=== PATIENT | female | born 1955 | race Caucasian/White ===

== ENCOUNTER 2021-09-30 08:00 | Day surgery (SDC) | payer MEDICARE ==
[2021-09-23 10:39] VITALS: BMI 23.1
[~2021-09-30 08:00] MED LIST: DEXAMETHASONE SOD PHOSPHATE 4 MG/ML 1 ML VIAL IV ONE; HYDROmorphone 0.5 MG/0.5 ML SYRINGE IVP PRN; ONDANSETRON 4 MG/2 ML VIAL IVP ONE; ceFAZolin 1,000 MG in SODIUM CHLORIDE 0.9% IRRIGATIO 1,000 ML IRRIGATION PRN
[2021-09-30] MEDS ORDERED: LIDOCAINE 1% (10MG/ML) FOR IV START INTRADERMA ONE (08:34)
[2021-09-30] MEDS: LACTATED RINGERS 1,000 ML IV SCH ×3 (08:35→15:15)
[2021-09-30] MEDS ORDERED: ONDANSETRON 4 MG/2 ML VIAL ONE (08:42)
[2021-09-30] MEDS ORDERED: MIDAZOLAM 2 MG/2 ML VIAL IVP ONE (08:45)
[2021-09-30] MEDS ORDERED: NEOSTIGMINE 1 MG/ML 10 ML VIAL ONE (10:11)
[2021-09-30] MEDS ORDERED: ROCURONIUM 10 MG/ML (5 ML VIAL) IV ONE (10:11)
[2021-09-30] MEDS ORDERED: fentaNYL (PF) 50 MCG/ML 2 ML AMP ONE (10:11)
[2021-09-30] MEDS ORDERED: SUCCINYLCHOLINE CHLORIDE 100 MG/5 ML SYR IV ONE (10:11)
[2021-09-30] MEDS ORDERED: PHENYLEPHRINE-0.9% NACL SYG 1,000 MCG/10 ML SYRINGE ONE (10:11)
[2021-09-30] MEDS ORDERED: GLYCOPYRROLATE 0.2 MG/ML 2 ML VIAL ONE (10:11)
[2021-09-30] MEDS ORDERED: PROPOFOL 10 MG/ML 20 ML VIAL IV ONE (10:11)
[2021-09-30] MEDS ORDERED: LIDOCAINE 1% INJ 10MG/ML (20 ML MDV) ONE (10:11)
[2021-09-30] MEDS ORDERED: MIDAZOLAM 2 MG/2 ML VIAL ONE (10:11)
[2021-09-30] MEDS ORDERED: GELATIN SPONGE,ABSORB (SMALL) 1 EACH SPONGE TOPICAL ONE (10:48)
[2021-09-30] MEDS ORDERED: THROMBIN (BOVINE) 5,000 UNIT VIAL TOPICAL ONE (10:48)
[2021-09-30] MEDS ORDERED: LIDOCAINE 2%-EPI 1:100,000 20 ML VIAL SQ ONE (10:48)
[2021-09-30] MEDS ORDERED: BUPIVACAINE (PF) 0.25% 30 ML VIAL SQ ONE (10:48)
[2021-09-30] MEDS ORDERED: LACTATED RINGERS 1,000 ML IV ONE (10:55)
[2021-09-30] MEDS ORDERED: HYDROcodone/APAP 5-325MG 1 EACH TAB PO PRN (12:39)
[2021-09-30] MEDS ORDERED: BENZOCAINE/MENTHOL LOZENG 1 EACH LOZENGE MUCOUS MEM PRN (12:39)
[2021-09-30] MEDS ORDERED: HYDROmorphone 0.5 MG/0.5 ML SYRINGE IVP PRN (12:39)
[2021-09-30] MEDS ORDERED: CYCLOBENZAPRINE 5 MG TAB PO PRN (12:40)
[2021-09-30] MEDS ORDERED: ONDANSETRON 4 MG/2 ML VIAL IVP PRN (12:40)
[2021-09-30] MEDS ORDERED: SENNOSIDES-DOCUSATE SODIUM 1 EACH TAB PO PRN (12:40)
[2021-09-30] MEDS ORDERED: ALPRAZolam 0.25 MG TAB PO PRN (12:42)
--- NOTE | 2021-09-30 12:48 | P.OP ---
Date of Procedure: 09/30/21 Preoperative Diagnosis: Herniated nucleus pulposis C5 6 C6 7 and C4 5, cervical spinal stenosis C4 5 C5 6 C6 7, severe degenerative disc disease C4 5 C5 6 C6 7, neck pain, upper extremity radiculopathy, upper extremity weakness Postoperative Diagnosis: Same Anesthesia: GETA Pathology: none sent Condition: stable Disposition: PACU Description of Procedure: BRIEF OPERATIVE NOTE Preoperative Diagnosis:Herniated nucleus pulposis C5 6 C6 7 and C4 5, cervical spinal stenosis C4 5 C5 6 C6 7, severe degenerative disc disease C4 5 C5 6 C6 7, neck pain, upper extremity radiculopathy, upper extremity weakness Postoperative Diagnosis:Herniated nucleus pulposis C5 6 C6 7 and C4 5, cervical spinal stenosis C4 5 C5 6 C6 7, severe degenerative disc disease C4 5 C5 6 C6 7, neck pain, upper extremity radiculopathy, upper extremity weakness Procedure: Anterior cervical decompression with discectomy and fusion C4 5 C5 6 and C6 7 Placement of interbody graft C4 5 C5 6 C6 7 Application of anterior cervical plate C4 5 6 and 7 Surgeon: Dr. Smith Delivery Man: Erik Camargo is present throughout the entire the case persistence during positioning, dissection, exposure, visualization, and all crucial elements of the case as well as closure. Anesthesia: General anesthesia Estimated blood loss: Approximately 200 mL Complications: None apparent Components implanted: K2M [place] anterior cervical plate system with screws and Vikos interbody allograft bone graft with 1 mL of DBX bone putty Disposition: To recovery room in good stable condition. OPERATIVE INDICATIONS The patient has had long-standing issues in their neck and upper extremities. She has been having worsening of her symptoms with the past several months has been having radiculopathy with some evidence of weakness. She does not have severe changes at her cervical spine with cervical stenosis and degenerative disc disease which correlate well with her neck and upper extremity symptoms. The patient has been through conservative treatment. She is not having any lasting effect despite aggressive conservative care. We discussed various treatment options including surgery, and the patient wishes to proceed with surgery We discussed the risk, patient's alternatives and benefits of surgery including but not limited to, risk of bleeding risk of infection, risk of need for further surgery, risk of decreased, loss of motion, muscle function, malunion nonunion, hardware failure, nerve damage, paralysis, heart attack, and . OPERATIVE SUMMARY After discussing all the risks, patient alternatives and benefits at length, the patient elected to proceed with surgical intervention, signed informed consent, and presented for their procedure. The patient was seen and examined in the preoperative holding area and the surgical site was marked. The patient was given antibiotics and brought to the operating room. The patient was positioned on the operating room table in a supine position being careful to pad any bony prominences and pressure points. The patient was sedated and intubated by anesthesia in standard fashion. Once the airway and C- spine were stabilized the patient's arms were padded and tucked at her side, with her shoulders gently taped. The head was placed in a donut pad with the neck in good neutral alignment and position. We were careful to maintain the patient's cervical spine and good neutral alignment and position throughout. The patient was prepped and draped in a normal standard fashion. An appropriate timeout and keystone protocol performed. We were able to proceed with the surgery. The local wound area was infiltrated with local anesthetic. An incision was made transversely approximately 2-1/2 cm over the appropriate levels at C5 6. Dissection was taken down subcutaneously to the level of the platysma which was split in line with its fibers. Dissection was taken with a carotid approach, with the trachea and esophagus medial and the carotid sheath laterally. We dissected down to the anterior surface of the vertebral bodies at C4 5 6 and 7. Intraoperative x-ray was taken which showed a marker at the appropriate level at C5 6. With the appropriate level positively confirmed, we were able to proceed with discectomy at the appropriate levels starting at C6 7 and then moving to C5 6 and then moving to C4 5. All of the operative levels were exposed appropriately. The patient had all their twitches back, and there was no evidence of recurrent laryngeal issue. The wound was copiously irrigated and suctioned dry as had been done periodically throughout the case. At the appropriate level/levels, I established an annulotomy with an 11 blade scalpel. A discectomy was performed with a combination of pituitary rongeurs, curettes, a high-speed bur, and Kerrison rongeurs. The posterior longitudinal ligament was taken down as were any posterior osteophytes. There was severe disc loss and posterior spurring particularly at C6 7 and C5 6. I was able to remedy this and take down the posterior longitudinal ligament at each level. This gave good central and bilateral foraminal decompression. There is no evidence of any dural tear or leak. The endplates were prepared with a high-speed bur. With the endplates in good parallel position, I was able to size for the appropriate size interbody graft. The wound was irrigated and suctioned dry the graft was prepared and malleted into position. It had good alignment and position with the anterior surface flush with the anterior surface of the vertebral bodies. This was done similarly the appropriate levels first at C6 7 and then at C5 6 and then at C4 5. With the grafts intact, I was able to measure and contour and appropriate sized plate. The plate was positioned at the midline over the appropriate levels at C4 5 6 and 7. Screw holes were established with a hand drill and drill guide. Screws were placed in good alignment and position with excellent bony purchase. They were seated under the locking device. The construct was checked and found to be stable. Intraoperative x-ray was taken which showed good alignment and position of the implants at the appropriate levels. There was no evidence of any dural tear or leak. Good hemostasis was maintained. The wound was copiously irrigated and suctioned dry as had been done periodically throughout the case. The platysma was closed with absorbable suture. The subcutaneous tissue was closed. The subcuticular tissue was closed with absorbable suture. The wound was cleaned and dried and dressed appropriately. A soft cervical collar was placed appropriately. The patient was woken up by anesthesia, extubated, transferred back gently to their hospital bed and brought to the recovery room in good stable condition. The patient will be admitted to the hospital for appropriate postoperative care, medical management and monitoring. We will continue to follow them closely about the postoperative course.
--- NOTE | 2021-09-30 14:47 | XR ---
EXAMINATION TYPE: XR cervical spine 1V DATE OF EXAM: 09/30/2021 COMPARISON: NONE HISTORY: 66-year-old female needle placement TECHNIQUE: Single intraoperative crosstable lateral view FINDINGS: The patient is intubated. Surgical needle within the C5-C6 anterior disc interspace. IMPRESSION: Surgical needle at the anterior C5-C6 disc interspace.
[2021-09-30] MEDS: SODIUM CHLORIDE 0.9% 1,000 ML IV SCH (15:49)
--- NOTE | 2021-09-30 15:56 | XR ---
EXAMINATION TYPE: XR cervical spine 1V DATE OF EXAM: 09/30/2021 COMPARISON: NONE HISTORY: 66-year-old female heart replacement TECHNIQUE: Intraoperative crosstable lateral view FINDINGS: The patient is intubated. Anterior wound from surgical incision. Interval placement of C4-C7 ACDF. IMPRESSION: Interval placement of C4-C7 ACDF.
[2021-09-30] MEDS: ACETAMINOPHEN TAB 325 MG TAB PO PRN (19:37)
[2021-10-01] MEDS: SODIUM CHLORIDE 0.9% 1,000 ML IV SCH (01:49)
[2021-10-01 05:21] VITALS: BP 105/65; PULSE 90; RESP 18; TEMP 98.6
[2021-10-01] MEDS: ACETAMINOPHEN TAB 325 MG TAB PO PRN (06:13)
--- NOTE | 2021-10-01 08:46 | P.DS ---
Providers Date of admission: 09/30/21 Attending physician: Bryan Smith Primary care physician: Bianka Michelle Hospital Course: The patient presented on the day of admission as per their operative note. She underwent anterior cervical decompression with discectomy and fusion at C4 5 C5 6 and C6 7 for her cervical stenosis with disc herniation and upper extremities biopsy. She feels her arms are doing very well today. She feels she has had improvement in her upper extremities already. She is doing well with her pain control. She is tolerating her oral diet. She has voiding freely. Physical Exam The incision site is clean dry and intact. There is no erythema no drainage. There is no purulence no evidence of infection. Her neck is soft and supple. There is no significant swelling. There is no drainage. She has good shaft sinker and biceps and triceps strength intact Abdomen soft and nontender. Chest has good excursion with deep inspiration and expiration. The patient has active and passive range of motion intact at the upper and lower extremities. There is no acute change in neurologic status. Hospital Course Postoperative day 1 status post anterior cervical decompression with discectomy and fusion C4 5 C5 6 C6 7 for her severe cervical stenosis with disc herniation upper extremity radiculopathy. Patient is doing well thus far. The patient has been making good progress postoperatively. They have completed the prophylactic antibiotics without any signs or symptoms of infection. The patient has been able to advance their diet, and is tolerating diet adequately. The pain was initially controlled with IV medications and is now controlled appropriately with oral medications. The patient has been able to increase their mobilization. She is sitting up in a chair and feels comfortable. The patient has progressed appropriately. I think they are in good stable condition for discharge today. They will be sent home with appropriate prescriptions. I answered their questions to the best of my ability in a language that they can understand and they are agreeable with the plan. They will follow up as directed in approximately 2 weeks or sooner if she is having a problems. Patient Condition at Discharge: Good Plan - Discharge Summary Discharge Rx Participant: Yes New Discharge Prescriptions: New HYDROcodone/APAP 5-325MG [Arion 5] 1 each PO Q6HR PRN #28 tab PRN Reason: Pain No Action Cholecalciferol [Vitamin D3 (25 Mcg = 1000 Iu)] 25 mcg PO DAILY Prasterone (Dhea) [Dhea] 50 mg PO DAILY Magnesium 200 mg PO DAILY L.acidoph,Paracasei, B.lactis [Probiotic] 1 each PO DAILY Ashwagandha Root Extract 300 mg PO HS Celecoxib [CeleBREX] 200 mg PO DAILY Sertraline [Zoloft] 100 mg PO DAILY Multivitamins, Thera [Multivitamin (formulary)] 1 tab PO DAILY ALPRAZolam [Xanax] 0.25 mg PO BID PRN PRN Reason: Anxiety Calcium Carbonate [Calcium] 600 mg PO DAILY Discharge Medication List ALPRAZolam [Xanax] 0.25 mg PO BID PRN 09/23/21 [History] Ashwagandha Root Extract 300 mg PO HS 09/23/21 [History] Calcium Carbonate [Calcium] 600 mg PO DAILY 09/23/21 [History] Cholecalciferol [Vitamin D3 (25 Mcg = 1000 Iu)] 25 mcg PO DAILY 09/23/21 [History] L.acidoph,Paracasei, B.lactis [Probiotic] 1 each PO DAILY 09/23/21 [History] Magnesium 200 mg PO DAILY 09/23/21 [History] Multivitamins, Thera [Multivitamin (formulary)] 1 tab PO DAILY 09/23/21 [History] Prasterone (Dhea) [Dhea] 50 mg PO DAILY 09/23/21 [History] Sertraline [Zoloft] 100 mg PO DAILY 09/23/21 [History] Celecoxib [CeleBREX] 200 mg PO DAILY 09/25/21 [History] HYDROcodone/APAP 5-325MG [Arion 5] 1 each PO Q6HR PRN #28 tab 09/30/21 [Rx] Follow up Appointment(s)/Referral(s): Bryan Smith DO [Doctor of Osteopathic Medicine] - 2 Weeks Activity/Diet/Wound Care/Special Instructions: Keep site clean. May shower with waterproof Tegaderm intact. Do not soak in a tub. After 72 hours postoperatively, patient May remove dressing and then may shower with area uncovered. Leave glue intact and allow it to fray off on its own. May ambulate as tolerated. Avoid heavy or rigorous activity. No repetitive bending twisting or lifting. No overhead work. Discharge Disposition: HOME SELF-CARE
[2021-10-01] MEDS ORDERED: MULTIVITAMINS, THERA 1 EACH TAB PO SCH (09:00)
[2021-10-01] MEDS ORDERED: SENNOSIDES-DOCUSATE SODIUM 1 EACH TAB PO SCH (09:00)
[2021-10-01] MEDS ORDERED: LACTOBACILLUS ACIDOPH & BULGAR 1 EACH PACKET PO SCH (09:00)
[2021-10-01] MEDS ORDERED: SERTRALINE 100 MG TAB PO SCH (09:00)
[2021-10-01] MEDS ORDERED: CALCIUM CARBONATE 500 MG CHEWABLE PO SCH (09:00)
[2021-10-01] MEDS ORDERED: CHOLECALCIFEROL 25 MCG (1000 IU) TABLET PO SCH (09:00)
[2021-10-01] MEDS ORDERED: PRASTERONE 50 MG PO SCH (09:00)
[2021-10-01] MEDS ORDERED: MAGNESIUM OXIDE 400 MG TAB PO SCH (09:00)
== END 2021-10-01 11:01 | disposition home or self-care (01) ==
LOC: OR 08:00 → 5NMEDONC 12:48 → OR 10-01 11:01
PROVIDERS: ATTEND Orthopaedic Surgery Orthopaedic Surgery of the Spine
DX: M50.121 Cervical disc disorder at C4-C5 level with radiculopathy (principal); M48.02 Spinal stenosis, cervical region; M47.22 Other spondylosis with radiculopathy, cervical region; R00.2 Palpitations; R63.5 Abnormal weight gain; Z20.822 Contact with and (suspected) exposure to COVID-19; R42 Dizziness and giddiness; R45.0 Nervousness; Z85.89 Personal history of malignant neoplasm of other organs and systems; Z90.710 Acquired absence of both cervix and uterus; Z98.890 Other specified postprocedural states; Z90.49 Acquired absence of other specified parts of digestive tract; Z87.891 Personal history of nicotine dependence; Z79.1 Long term (current) use of non-steroidal anti-inflammatories (NSAID); Z79.891 Long term (current) use of opiate analgesic; Z79.899 Other long term (current) drug therapy; K58.9 Irritable bowel syndrome, unspecified; M19.90 Unspecified osteoarthritis, unspecified site
CPT/HCPCS: 87635; 72020; 22551; 22552 ×2; 20931; C1713 ×2; C1762 ×2; J2250; J2710; J0690 ×3; J2405; J2001; J3010; J2370; J0330; J2704